=== PATIENT | male | born 1980 | race Caucasian/White ===

== ENCOUNTER 2019-06-30 17:42 | Emergency (ER) | payer OTHER ==
--- NOTE | 2019-06-30 17:59 | ER Report ---
History and Physical Time Seen By MD: 17:48 Hx. of Stated Complaint: WANTS A DOCTORS NOTE FOR HIS STOMACH BUG. STATES NAUSEA/VOMITTING/DIARRHEA SINCE THIS AM HPI/ROS CHIEF COMPLAINT: Doctors note HISTORY OF PRESENT ILLNESS: patient is a 38 yo M c/o vomiting x7 and diarrhea x5 since this morning. Has not had an appetite but has been able to keep water down. Denies sore throat, cough, congestion, rhinorrhea or abdominal pain. His friend at work had the same symptoms 3 days ago that resolved on their own but his boss had a fever and strep throat at work yesterday. Has not tried anything to make his symptoms better. Denies eating at a restaurant yesterday. Would like a note for work or he will be fired. Allergies: Coded Allergies: No Known Drug Allergies (Unverified , 06/30/19) Home Meds No Active Prescriptions or Reported Meds Past Medical/Surgical History Past Medical history of gall bladder disease, hiatal hernia Past surgical history of cholecystectomy, hiatal hernia x2 Reviewed Nurses Notes: Yes Constitutional Vital Sign - Last 24 Hours 06/30/19 06/30/19 17:48 18:00 Temp 98.0 Pulse 60 64 Resp 20 B/P (MAP) 120/83 120/88 (99) Pulse Ox 96 92 O2 Delivery Room Air Physical Exam General appearance: Alert no distress HEENT: oropharynx is without erythema or exudate, TMs are clear with central light reflex and landmarks present bilaterally, turbinates are boggy bilaterally, no lymphadenopathy Respiratory: Chest is non tender, lungs are clear to auscultation. Cardiac: Regular rate and rhythm GI: bowel sounds present, mild tenderness to RUQ DIFFERENTIAL DIAGNOSIS: After history and physical exam differential diagnosis was considered for Gastroenteritis, strep throat Medical Decision Making ED Course/Re-evaluation ED Course Patient is a 38 year old male presenting to the ED for a doctors note. He has been having vomiting x7 and diarrhea x5 since this morning. Physcial exam was benign with no acute findings. Differential Diagnoses were considered. No labs or imaging were justified for this patient. Patient understood condition and was sent home with a doctors note. Instructed to rest and hydrate with a clear liquid diet for 1-2 days. Return precautions given. Decision to Disposition Date: Jun 30, 2019 Decision to Disposition Time: 18:13 Depart Departure Latest Vital Signs Vital Signs Date Time Temp Pulse Resp B/P (MAP) Pulse Ox O2 Delivery O2 Flow Rate FiO2 06/30/19 18:00 64 120/88 (99) 92 06/30/19 17:48 98.0 20 Room Air Impression: Primary Impression: Gastroenteritis Condition: Improved Disposition: HOME OR SELF-CARE New Scripts No Active Prescriptions or Reported Meds Departure Forms: Medications Reconciliation, Patient Portal Information, ER Transition Record Patient Instructions: Gastroenteritis (ED) Additional Instructions: Increase fluid intake. Clear liquid diet for the next 24-48 hours. After that you may advance diet as tolerated starting with complex carbohydrates; rice, bread or pasta. Follow up with your primary care provider in the next week. Return to the ER if condition worsens. You may take over the counter Pepto Bismol as needed for cramping, diarrhea and discomfort. SOHAIL MOELLER Jun 30, 2019 17:59
[2019-06-30 18:00] VITALS: BP 120/88
== END 2019-06-30 18:31 | disposition home or self-care (01) ==
LOC: ER 17:49
DX: K52.9 Noninfective gastroenteritis and colitis, unspecified (principal)
CPT/HCPCS: 99281